=== PATIENT | male | born 1985 | race Caucasian/White ===

== ENCOUNTER 2018-04-12 10:32 | Emergency (ER) | payer SELFPAY ==
[~2018-04-12] VITALS: Ht 167.6 cm; Wt 69.9 kg
--- NOTE | 2018-04-12 11:12 | Emergency Room Report ---
History of Present Illness General Chief Complaint: General Complaint Source: Patient Present Illness HPI 33-year-old healthy male visiting from [facility], requests PT and PTT check as he reports he is given himself 1 mg/kg Lovenox injections a day. He does not have the injections with him, but he is pretty sure it is 1 mg/kg and he only injects himself once a day. He has been on them for almost 2 weeks, and he is reportedly taking it for another week until he goes back to [facility] and has a boot removed from his left lower extremity, which she has secondary to a minor foot fracture. He actually reports he does remove the boot every night and massages his calf and wiggles his toes, he denies any calf swelling, calf pain, redness, and he reports he never had any surgery. He denies any bleeding, falls , cp, sob, any complaints at all. He is only coming to the ED because he was told by his doctor in [facility] that he should get his blood checked one time always here to make sure that his dosing is appropriate. Allergies: Coded Allergies: No Known Allergies (Unverified , 04/12/18) Patient History Past Medical History: see triage record Reviewed Nursing Documentation: PMH: Agreed; PSxH: Agreed Nursing Documentation-PMH Past Medical History: No Stated History Review of Systems All Other Systems: negative except mentioned in HPI Physical Exam Vital Signs Date Time Temp Pulse Resp B/P (MAP) Pulse Ox O2 Delivery O2 Flow Rate FiO2 04/12/18 10:34 97.7 58 18 123/78 96 Room Air 97.7 Sp02 EP Interpretation: reviewed, normal General Appearance: no apparent distress, alert, non-toxic Head: normocephalic Eyes: bilateral eye normal inspection, bilateral eye PERRL, bilateral eye EOMI ENT: normal ENT inspection, hearing grossly normal, normal pharynx, no angioedema, normal voice, moist mucus membranes Neck: normal inspection, full range of motion, supple, supple/symm/no masses Respiratory: chest non-tender, lungs clear, normal breath sounds, chest symmetrical, palpation of chest normal Cardiovascular #1: normal peripheral pulses, regular rate, rhythm Cardiovascular #2: 2+ radial (R), 2+ radial (L) Gastrointestinal: normal inspection, non tender, soft, no mass, no guarding, no rebound Rectal: deferred Genitourinary: normal inspection, no CVA tenderness Musculoskeletal: back normal, gait/station normal, normal range of motion, non- tender, no calf tenderness, other - Left foot improved, able to wiggle toes, no left lower extremity edema notable at proximal calf Neurologic: alert, responsive, 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 As he has no symptoms, I discharged him without having him sign an AMA form, and explained to him that as long as his dosing is appropriate at 1 mg/kg or less, he should be okay, especially as he has not actually been diagnosed with a DVT, and this is some sort of prophylactic injection regimen. he was instructed to return to the nearest ED if he sustain any trauma, ordid develop any bleeding or any symptoms that were of concern. Last Vital Signs Date Time Temp Pulse Resp B/P (MAP) Pulse Ox O2 Delivery O2 Flow Rate FiO2 04/12/18 10:34 97.7 58 18 123/78 96 Room Air 97.7 Disposition: HOME, SELF-CARE Condition: Stable Referrals: Your PMD Patient Instructions: How and Where to Give Subcutaneous Enoxaparin Injections CRICKET SHEPHERD M.D Apr 12, 2018 11:12
[2018-04-12 11:40] VITALS: BP 123/78
[2018-04-12 11:41] VITALS: BP 123/78
== END 2018-04-12 11:47 | disposition home or self-care (01) ==
LOC: EMR 11:05
DX: Z04.8 Encounter for examination and observation for other specified reasons (principal); Z79.899 Other long term (current) drug therapy; Z79.01 Long term (current) use of anticoagulants; Z98.890 Other specified postprocedural states
CPT/HCPCS: 99282